=== PATIENT | male | born 1945 ===

== ENCOUNTER → 2025-03-25 13:29 | Outpatient (BNVA) | payer MEDICARE, OTHER, SELFPAY | PROVIDERS: Family Provider Family Medicine; PCP Family Medicine; Visit Provider Family Medicine | DX: I10 Essential (primary) hypertension (principal); E11.9 Type 2 diabetes mellitus without complications; E78.5 Hyperlipidemia, unspecified | CPT/HCPCS: 80053; 80061; 83036; 85025 ==

== ENCOUNTER 2025-07-28 14:59 | Emergency (ER) | payer MEDICARE, OTHER, SELFPAY ==
[2025-07-28] VITALS (9 sets, daily range): BP systolic 132–167; BP diastolic 78–90; PULSE 88–105; RESP 16–21; TEMP 36.6; O2SAT 97–99
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
[2025-07-28 15:17] LABS: ABG PCO2 43.5 mmHg (35-45); ABG PH Result 7.39 (7.35-7.45); Alveolar-Arterial Oxygen Gradi 1.1 mmHg (5-10); Arterial Blood Gas Hematocrit 40.6 % (42-52); Blood Gas Allen Test Pos; Blood Gas Sample Type Arterial; Carboxyhemoglobin 1.0 %THgb (0.4-20.1); Glucose Level-ABG 590.0 mg/dL (70-115); HCO3 ABG 26.2 mmol/L (22-26); Ionized Calcium Level - ABG 1.3 mmol/L (1.1-1.4); Methemoglobin 0.2 % (0.4-1.5); Oxygen Saturation ABG 97.0; PO2 ABG 86.2 mmHg (80.0-100.0); Potassium Level - ABG 4.1 mmol/L (3.5-5.0); Sodium Level - ABG 135.0 mmol/L (131-143)
[2025-07-28 15:18] LABS: Blood Gas Operator Identificat MONRO; Blood Gas Sample Site Radial, left; PO2 FiO2 Ratio Arterial Blood 410
[2025-07-28] MEDS: insulin regular-human 100 units/1 mL 10 UNIT IVP (15:21)
[2025-07-28 15:24] LABS: Hematocrit 42.9 % (37-53); Hemoglobin 13.70 g/dL (11.27-16.99); Mean Corpuscular HGB Conc 31.9 g/dL (30-55); Mean Corpuscular Hemoglobin 25.5 pg (27-33); Mean Corpuscular Volume 79.9 fl (82-101); Nucleated Red Blood Cells % 0 %; Platelet Count 313 10^3/cmm (157-399); Red Blood Count 5.37 10^6/uL (3.85-5.65); White Blood Count 7.02 10^3/uL (3.29-11.43)
[2025-07-28 15:46] LABS: Alanine Aminotransferase 14 U/L (0-41); Albumin Level 4.1 g/dL (3.5-5.2); Alkaline Phosphatase 99 U/L (40-130); Anion Gap 13.4 (5-19); Aspartate Amino Transferase 11 U/L (0-40); Blood Urea Nitrogen 26 mg/dL (8-23); Calcium 9.8 mg/dL (8.5-10.5); Carbon Dioxide 30 mmol/L (22-29); Chloride 95 mmol/L (98-107); Globulin 3.5 g/dL (1.3-4.6); Osmolality Calculated 313 mOsm/kg (285-295); Potassium 4.4 mmol/L (3.5-5.1); Sodium 134 mmol/L (136-145); Total Protein 7.6 g/dL (6.6-8.7)
[2025-07-28 15:50] LABS: Ketone (Acetest) Serum Negative (Negative)
[2025-07-28 15:54] LABS: Glucose Urine UA 3+ (Normal); Nitrate Urine Negative (Negative)
[2025-07-28 15:54] LABS: Glucose 639 mg/dL (65-115)
[2025-07-28 15:58] LABS: Add Urine Microscopic? YES
[2025-07-28 16:04] LABS: Specific Gravity, Urine 1.035 (1.005-1.030)
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
== END 2025-07-28 17:14 | disposition home or self-care (01) ==
PROVIDERS: Emergency Provider Family Medicine; PCP Family Medicine
DX: E11.65 Type 2 diabetes mellitus with hyperglycemia (principal); Z79.82 Long term (current) use of aspirin; I10 Essential (primary) hypertension
CPT/HCPCS: 36415; 36416; 36600; 70450; 80051; 80053; 81001; 82009; 82330; 82805; 82962; 85025; 96361; 96374; 99285; J1815; J7030